=== PATIENT | female | born 1985 | race Caucasian/White ===

== ENCOUNTER 2022-11-19 14:11 | Emergency (ER) | payer MEDICAID ==
[~2022-11-19] VITALS: Ht 172.7 cm; Wt 117.0 kg
[2022-11-19 14:25] VITALS: BP 108/78
--- NOTE | 2022-11-19 14:29 | NUR ---
PT AMBULATED TO ER BED 5
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
--- NOTE | 2022-11-19 14:43 | NUR ---
DR AMANDA AT BEDSIDE EVALUATING PT
[2022-11-19 15:15] LABS: BASOPHILS % (AUTO) 0.6 % (0.0-2.0); EOSINOPHILS # (AUTO) 0.1 K/uL (0-0.4); HEMATOCRIT 42.3 % (36-48); HEMOGLOBIN 14.3 g/dL (12.0-16.0); LYMPHOCYTES # (AUTO) 2.5 K/uL (2.5-16.5); LYMPHOCYTES % (AUTO) 32.8 % (20.5-51.1); MEAN CORPUSCULAR HEMOGLOBIN 30 pg (27-31); MEAN CORPUSCULAR HGB CONC 34 g/dL (33-37); MEAN CORPUSCULAR VOLUME 88.3 fL (80-94); MONOCYTES # (AUTO) 0.4 K/uL (0.8-1.0); MONOCYTES % (AUTO) 5.3 % (1.7-9.3); NEUTROPHILS # (AUTO) 4.5 K/uL (1.8-7.7); NEUTROPHILS % (AUTO) 60.3 % (42.2-75.2); PLATELET COUNT (AUTO) 312 K/uL (140-450); RED CELL DISTRIBUTION WIDTH 13.8 % (11.6-13.7); WHITE BLOOD COUNT (AUTO) 7.5 K/uL (4.8-10.8)
[2022-11-19 15:32] LABS: APPEARANCE,URINE CLEAR (CLEAR); BILIRUBIN,URINE NEGATIVE (NEGATIVE); BLOOD, URINE 3+ (NEGATIVE); COLOR,URINE YELLOW (YELLOW); LEUKOCYTE ESTERASE ,URINE NEGATIVE (NEGATIVE); NITRITE, URINE NEGATIVE (NEGATIVE); UGLUCOSE NEGATIVE (NEGATIVE)
[2022-11-19 15:36] LABS: ALBUMIN 4.5 g/dL (3.4-5.0); ANION GAP 9.2 (8-16); CARBON DIOXIDE 30.4 mmol/L (21-32); CREATININE 0.7 mg/dL (0.6-1.3); POTASSIUM 3.6 mmol/L (3.5-5.1); TOTAL BILIRUBIN 0.3 mg/dL (0.0-1.0)
[2022-11-19 15:41] LABS: RBC,URINE 11-20 (MOD) /HPF (0-5); WBC,URINE 0-5 /HPF (0-5)
--- NOTE | 2022-11-19 16:06 | NUR ---
PT TAKEN TO CT VIA WHEELCHAIR
[2022-11-19 17:03] VITALS: BP 117/62
--- NOTE | 2022-11-19 17:14 | NUR ---
IV removed, catheter intact and site benign. Applied folded 4x4 gauze and tape to stop bleeding.
--- NOTE | 2022-11-19 17:17 | NUR ---
Patient discharged with v/s stable. Written and verbal after care instructions FOR ABD PAIN, UMBILICAL HERNIA AND DIVERTICULITIS given and explained. Patient verbalized understanding. Ambulatory with steady gait. All questions addressed prior to discharge. Advised to follow up with PMD.
--- NOTE | 2022-11-19 17:30 | NUR ---
The patient's care was reviewed and supervised by Prachi Gutierrez RN.
== END 2022-11-19 17:17 | disposition home or self-care (01) ==
LOC: MED 14:11
DX: K42.9 Umbilical hernia without obstruction or gangrene (principal); Z98.890 Other specified postprocedural states
CPT/HCPCS: 36415; 74177; 80053; 81001; 81025; 83690; 85025; 99285; Q9967

== ENCOUNTER 2022-12-31 15:25 | Emergency (ER) | payer MEDICAID ==
--- NOTE | 2022-12-31 15:47 | NUR ---
ATTEMPTED TO TRIAGE PT, NO ANSWER IN LOBBY/OUTSIDE
--- NOTE | 2022-12-31 16:01 | NUR ---
2ND ATTEMPT, NO ANSWER
--- NOTE | 2022-12-31 16:23 | NUR ---
LAST ATTEMPT, NO ANSWER. PATIENT LEFT WITHOUT BEING SEEN BY DR. ACUNA. NO FURTHER CARE PROVIDED FOR PATIENT.
[2023-01-01] MEDS ORDERED: ACET-10509 PO (01:56)
== END 2022-12-31 15:47 | disposition left against medical advice (07) ==
LOC: MED 15:25
DX: M79.646 Pain in unspecified finger(s) (principal); Z53.21 Procedure and treatment not carried out due to patient leaving prior to being seen by health care provider

== ENCOUNTER 2023-01-01 00:05 | Emergency (ER) | payer MEDICAID ==
[~2023-01-01] VITALS: Ht 172.7 cm; Wt 115.7 kg
[2023-01-01 00:50] VITALS: BP 124/76
[2023-01-01 00:56] VITALS: BP 124/76
--- NOTE | 2023-01-01 00:58 | NUR ---
Pt triaged and placed in WR. No acute signs of distress at this time.
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
--- NOTE | 2023-01-01 01:13 | NUR ---
PT RETURN FROM RADIOLOGY
--- NOTE | 2023-01-01 01:15 | NUR ---
Lyndsay del valle in [facility] - 01/01/23 at 0124 by [id number] Pt taken to RAD for imaging.
--- NOTE | 2023-01-01 01:52 | NUR ---
Dr. Valerio examining patient.
[2023-01-01] MEDS ORDERED: ACET-10509 PO (01:56)
[2023-01-01] MEDS ORDERED: ACETAMINOPHEN EXTRA STRENGTH 500 MG TAB PO ONE (02:00)
== END 2023-01-01 02:25 | disposition home or self-care (01) ==
LOC: MED 00:05
DX: S60.222A Contusion of left hand, initial encounter (principal); Z79.899 Other long term (current) drug therapy; X58.XXXA Exposure to other specified factors, initial encounter; Y93.89 Activity, other specified; Y92.89 Other specified places as the place of occurrence of the external cause; Y99.8 Other external cause status
CPT/HCPCS: 73130; 99283

== ENCOUNTER 2023-07-27 22:45 | Emergency (ER) | payer SELFPAY ==
[~2023-07-27] VITALS: Ht 172.7 cm; Wt 111.6 kg
[~2023-07-27 22:45] MED LIST: ACET-10509 PO
[2023-07-27 23:05] VITALS: BP 128/86; PULSE 72; RESP 17; TEMP 97.7; O2SAT 98
[2023-07-27] MEDS ORDERED: ONDANSETRON 4 MG ODT PO ONE (23:15)
[2023-07-28 00:02] LABS: FLU A ANTIGEN negative (NEGATIVE); FLU B ANTIGEN negative (NEGATIVE)
[2023-07-28 00:16] LABS: APPEARANCE,URINE CLEAR (CLEAR); BILIRUBIN,URINE NEGATIVE (NEGATIVE); BLOOD, URINE 3+ (NEGATIVE); COLOR,URINE YELLOW (YELLOW); LEUKOCYTE ESTERASE ,URINE NEGATIVE (NEGATIVE); NITRITE, URINE NEGATIVE (NEGATIVE); PH,URINE 6.5 (5.0-9.0); PROTEIN,URINE NEGATIVE (NEGATIVE); UGLUCOSE NEGATIVE (NEGATIVE)
[2023-07-28 00:34] LABS: BACTERIA,URINE FEW /HPF (None Seen); MUCUS,URINE 1+ /LPF (None Seen); RBC,URINE 20-50 /HPF (0-5); SQUAMOUS EPITHELIAL CELL,UR 0-3 (FEW) /LPF (0-3 (FEW)); TRICHOMONAS,URINE None Seen /HPF (None Seen); WBC,URINE 0-5 /HPF (0-5); YEAST,URINE None Seen /HPF (None Seen)
[2023-07-28] MEDS ORDERED: ONDA-188 SL (01:17)
[2023-07-28] MEDS ORDERED: ACET-2619 PO (01:17)
[2023-07-28] MEDS ORDERED: LOPE-289 PO (01:17)
[2023-07-28 01:46] VITALS: BP 128/86; PULSE 72; RESP 17; TEMP 97.7; O2SAT 98
== END 2023-07-28 01:45 | disposition home or self-care (01) ==
LOC: MED 22:45
DX: R11.2 Nausea with vomiting, unspecified (principal); R19.7 Diarrhea, unspecified; Z20.822 Contact with and (suspected) exposure to COVID-19; Z79.899 Other long term (current) drug therapy
CPT/HCPCS: 81001; 81025; 87426; 87804; 99283; Q0162